=== PATIENT | female | born 1950 | race Caucasian/White ===

== ENCOUNTER → 2021-09-16 12:44 | Outpatient (CLI) | payer OTHER, SELFPAY ==
--- NOTE | 2021-09-16 | DI.US.S_ITS ---
LIMITED ULTRASOUND OF RIGHT BREAST: 09/16/2021 CLINICAL: Patient returns today to evaluate a focal asymmetry in the right breast. Implants. Comparison is made to exams dated: 09/16/2021 mammogram - [facility], 06/24/2021 mammogram - [facility], 05/17/2017 mammogram, and 02/21/2016 mammogram - [facility]. Real-time ultrasound of the right breast 6 o'clock region was performed. Rodriguez scale images of the real-time examination were reviewed. No significant abnormalities were seen sonographically in the right breast in the region of possible asymmetries. IMPRESSION: NEGATIVE There is no sonographic evidence of malignancy. A 1 year screening mammogram is recommended. Exam findings were conveyed to the patient. This exam was interpreted at Station ID: [id number]. Electronically Signed By: Andi Whitfield M.D. slc/:09/16/2021 14:09:42 letter sent: Normal Exam Ultrasound BI-RADS: 1 Negative
--- NOTE | 2021-09-16 | DI.MG.S_ITS ---
UNILATERAL RIGHT DIGITAL DIAGNOSTIC MAMMOGRAM 3D/2D WITH ADDITIONAL VIEWS: 09/16/2021 CLINICAL: Additional evaluation requested from prior study. Comparison is made to exams dated: 06/24/2021 mammogram - [facility], 05/17/2017 mammogram, and 02/21/2016 mammogram - [facility]. The tissue of right breast is heterogeneously dense. This may lower the sensitivity of mammography. There is a possible asymmetry in the right breast posterior depth inferior region seen on the mediolateral oblique view only. There also is a possible asymmetry in the right breast posterior depth inferior region seen on the mediolateral oblique view only. This is not seen in additional views. No other significant masses or calcifications are seen in the breast. IMPRESSION: INCOMPLETE: NEEDS ADDITIONAL IMAGING EVALUATION Possible asymmetry in the right breast posterior depth inferior region seen on the mediolateral oblique view only is indeterminate. -A targeted ultrasound is recommended and will immediately follow. The possible asymmetry in the right breast posterior depth inferior region seen on the mediolateral oblique view only is consistent with fibroglandular tissue and is benign. This exam was interpreted at Station ID: [id number]. NOTE: For mammograms, a report in lay terms will be sent to the patient. Approximately 15% of breast malignancies will not be visualized mammographically. In the management of a palpable breast mass, a negative mammogram must not discourage biopsy of a clinically suspicious lesion. Electronically Signed By: Andi Whitfield M.D. slc/:09/16/2021 14:10:45 ACR BI-RADS Category 0: Incomplete [id number]
== END ==
PROVIDERS: PCP Registered Nurse; Referring Provider Registered Nurse; Visit Provider Registered Nurse
DX: R92.8 Other abnormal and inconclusive findings on diagnostic imaging of breast (principal)
CPT/HCPCS: 76642; 77065; G0279